=== PATIENT | male | born 1990 | race Caucasian/White ===

== ENCOUNTER 2017-08-22 10:13 | Emergency (ER) | payer SELFPAY ==
[2017-08-22] MEDS ORDERED: Morphine INJ* 4 MG/ML 1 ML SYRINGE (NEW SYRINGE VERSION) IM ONE (11:37)
[2017-08-22 12:43] VITALS: BP 0/0
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
== END 2017-08-22 12:40 | disposition left against medical advice (07) ==
LOC: ED 10:13
DX: G89.29 Other chronic pain (principal); M54.5 Low back pain; Z53.21 Procedure and treatment not carried out due to patient leaving prior to being seen by health care provider; F41.9 Anxiety disorder, unspecified; F17.210 Nicotine dependence, cigarettes, uncomplicated
CPT/HCPCS: 99282; J2270